=== PATIENT | female | born 1960 | race Caucasian/White ===

== ENCOUNTER 2022-09-18 21:56 | Emergency (ER) | payer BC ==
[~2022-09-18] VITALS: Ht 162.6 cm; Wt 51.7 kg
[2022-09-18 22:00] VITALS: BP_SYST 153
[2022-09-19 01:26] VITALS: BP_SYST 153
== END 2022-09-19 01:26 | disposition home or self-care (01) ==
LOC: SED 21:56
DX: H43.811 Vitreous degeneration, right eye (principal); H53.8 Other visual disturbances; R20.2 Paresthesia of skin; E11.9 Type 2 diabetes mellitus without complications; E78.00 Pure hypercholesterolemia, unspecified; Z79.899 Other long term (current) drug therapy
CPT/HCPCS: 70450-TC; 76376; 99284